=== PATIENT | female | born 1985 | race Caucasian/White ===

== ENCOUNTER 2021-11-26 01:25 | Emergency (ER) | payer OTHER ==
[2021-11-26] MEDS ORDERED: Sodium Chloride 0.9% 10 ML Syringe FLUSH PRN (01:58)
[2021-11-26] MEDS: Sodium Chloride 0.9% 1,000 ML IV ONE (02:26)
[2021-11-26] MEDS: Ketorolac 30 MG/ML SDV IVPUSH ONE (02:29)
[2021-11-26] MEDS: Ondansetron 4 MG/2 ML SDV IVPUSH ONE (02:29)
[2021-11-26] MEDS: traMADol 50 MG Tab PO ONE (03:17)
[2021-11-26 03:31] VITALS: BP 129/69; PULSE 53
== END 2021-11-26 03:30 | disposition home or self-care (01) ==
LOC: KA.ED 01:25
DX: N39.0 Urinary tract infection, site not specified (principal); N76.0 Acute vaginitis; B96.89 Other specified bacterial agents as the cause of diseases classified elsewhere; K59.00 Constipation, unspecified
CPT/HCPCS: 74018; 81001; 81025; 87086; 96374; 96375; 99284; A9270; J1885; J2405; J7030